=== PATIENT | male | born 1990 | race African-American/Black ===

== ENCOUNTER 2017-10-20 23:21 | Emergency (ER) | payer BC ==
[~2017-10-20] VITALS: Ht 190.5 cm; Wt 145.2 kg
[~2017-10-20 23:21] MED LIST: APAP/CODEINE ELI5 M1 OR; IBUPROFEN 600600 M1 PO; ZPAK PO
[2017-10-20 23:34] VITALS: BP 173/108
[2017-10-20] MEDS ORDERED: B/P MED PO (23:37)
[2017-10-20] MEDS ORDERED: FLAGYL500 MG PO (23:47)
== END 2017-10-21 00:50 | disposition home or self-care (01) ==
LOC: ER 23:21
DX: R36.9 Urethral discharge, unspecified (principal); F17.210 Nicotine dependence, cigarettes, uncomplicated; I10 Essential (primary) hypertension

== ENCOUNTER 2020-10-30 09:43 | Inpatient (IN) | payer BC, OTHER ==
[~2020-10-30] VITALS: Ht 188 cm; Wt 160.1 kg
[~2020-10-30 09:43] MED LIST changes: +B/P MED PO; +FLAGYL500 MG PO
[2020-10-30 09:44] VITALS: BP 204/144
[2020-10-30 10:51] LABS: ABSOLUTE NEUTROPHILS 5.9 thou/uL (1.4-8.2); BASOPHILS 0.5 % (0.0-2.0); EOSINOPHILS 0.9 % (0.0-3.0); HEMATOCRIT 45.9 % (42.0-52.0); HEMOGLOBIN 15.1 gm/dL (14.0-18.0); LYMPHOCYTES 22.5 % (24.0-44.0); MCH 27.8 pg (26.0-34.0); MCHC 32.9 g/dL (28.0-37.0); MCV 84.5 fL (80.0-100.0); MONOCYTES 5.4 % (1.0-8.0); PLATELET COUNT 254 thou/uL (150-400); POLYS 70.7 % (36.0-66.0); RBC 5.43 mil/uL (4.50-6.00); WBC 8.4 thou/uL (4.0-11.0)
[2020-10-30 11:01] LABS: CALCIUM 8.7 mg/dL (8.5-10.1); CREATININE 1.3 mg/dL (0.7-1.3); POTASSIUM 3.9 mmol/L (3.5-5.1)
[2020-10-30 11:11] LABS: ALBUMIN 3.7 g/dL (3.4-5.0); TOTAL BILIRUBIN 0.6 mg/dL (0.2-1.0); TOTAL PROTEIN 7.5 g/dL (6.4-8.2)
--- NOTE | 2020-10-30 15:01 | EKG ---
[address] [address] ELECTROCARDIOGRAM REPORT Name: TINO HANSON Room #: 170-7 ADM IN M.R.#: [id number] Admission: 10/30/20 Attend Phys: Janet Torrez MD Discharge: Date of : 88 Report #: [id number] [facility] ED Test Date: 2020-10-30 Test Time: 10:41:41 Pat Name: TINO HANSON Department: Room: 170 Gender: M Senior Information Security Consultant: PAULINA : 1990 Requested By: Renan Puga Order Number: [id number] MD: Serge Oliver Measurements Intervals [place] Rate: 100 P: 17 WA: 161 QRS: 23 QRSD: 99 T: -76 QT: 354 QTc: 457 Interpretive Statements Sinus tachycardia Left atrial enlargement Borderline repolarization abnormality No previous ECG available for comparison Electronically Signed On 10-30-2020 15:00:51 CDT by Serge Oliver [email or web address] <ELECTRONICALLY SIGNED> By: Serge Oliver MD, LOCATED WITHIN [facility] 10/30/20 1500 1041 1041 Serge Oliver MD, FACC /EPI
[2020-10-30 16:00] VITALS: BP 113/74
[2020-10-30 21:00] LABS: CHOLESTEROL 186 mg/dL (<200); HDL CHOLESTEROL 48 mg/dL (>40); LDL CHOLESTEROL 104 mg/dL (<100); TC:HDL 3.9 Ratio (Not establshd); TRIGLYCERIDE 173 mg/dL (<150); VLDL 35 mg/dL (<40)
[2020-10-30 21:01] LABS: SERUM ASSESSMENT Clear
[2020-10-31] VITALS (7 sets, daily range): BP systolic 138–148; BP diastolic 93–105
[2020-10-31 07:12] LABS: GLYCOHEMOGLOBIN (HGB A1C) 6.5 % (4.8-5.6)
[2020-10-31 09:36] LABS: CALCIUM 8.9 mg/dL (8.5-10.1); CREATININE 1.4 mg/dL (0.7-1.3); POTASSIUM 3.5 mmol/L (3.5-5.1)
[2020-10-31] MEDS ORDERED: ZESTRIL40 MG PO (13:18)
[2020-10-31] MEDS ORDERED: AMLODIPINE BESY10 MG PO (13:18)
--- NOTE | 2020-10-31 15:52 | 2DMMODE ---
[facility] [address] [place] [address] 2 D/M-MODE ECHOCARDIOGRAM Name: TINO HANSON Room #: 212-P ADM IN M.R.#: [id number] Admission: 10/30/20 Attend Phys: Janet Torrez MD Discharge: Date of : 88 Report #: [id number] THIS REPORT FOR: cc: [facility] - Clinic physician unknown [facility] - Clinic physician unknown Alex Esparza MD ~ APPROVED REPORT Study performed: 10/31/2020 14:48:23 EXAM: Comprehensive 2D, Doppler, and color-flow Echocardiogram Patient Location: Bedside Room #: 212 Status: routine BSA: 2.77 HR: 77 bpm BP: 147/105 mmHg Rhythm: NSR Other Information Study Quality: Adequate Indications Congestive Heart Failure Cardiomyopathy Hypertension/HDD 2D Dimensions RVDd: 46.35 mm IVSd: 7.94 (7-11mm) LVOT Diam: 26.18 (18-24mm) LVDd: 76.87 mm PWd: 10.99 (7-11mm) Ascending Ao: 33.27 (22-36mm) LVDs: 66.25 (25-40mm) Left Atrium: 54.37 (27-40mm) Aortic Root: 31.65 mm IVC: 17.00 mm Volumes Left Atrial Volume (Systole) Single Plane 4CH: 165.78 mL Single Plane 2CH: 107.67 mL LA ESV Index: 52.00 mL/m2 Aortic Valve AoV Peak Sean.: 1.06 m/s AO Peak Gr.: 4.52 mmHg LVOT Max P.33 mmHg [facility] [address] [place] [address] 2 D/M-MODE ECHOCARDIOGRAM Name: TINO HANSON JR Room #: 212-P [facility] IN .R.#: [id number] Admission: 10/30/20 Attend Phys: Denice Ontiveros Discharge: Date of : 88 Report #: [id number] LVOT Max V: 0.76 m/s JOSE JUAN Vmax: 3.86 cm2 Mitral Valve E/A Ratio: 3.3 MV Decel. Time: 128.73 ms MV E Max Sean.: 0.93 m/s MV A Sean.: 0.28 m/s MV PHT: 37.33 ms IVRT: 83.04 ms Pulmonary Valve PV Peak Sean.: 0.63 m/s PV Peak Gr.: 1.57 mmHg Pulmonary Vein P Vein S: 0.17 m/s P Vein A: 0.16 m/s P Vein D: 0.46 m/s P Vein A Dur.: 96.9 msec P Vein S/D Ratio: 0.37 Tricuspid Valve TR Peak Sean.: 2.02 m/s TR Peak Gr.: 16.26 mmHg PA Pressure: 21.00 mmHg Left Ventricle Left ventricle is dilated. There is severe global hypokinesis of the left ventricle. There is normal left ventricular wall thickness. Left ventricular ejection fraction is severely decreased. LVEF is 25-30%. Grade IV - fixed restrictive diastolic dysfunction. Right Ventricle Right ventricle is dilated. The right ventricular systolic function is normal. Atria Left atrium is dilated. Right atrium is dilated. Aortic Valve The aortic valve is normal in structure. No aortic regurgitation is present. There is no aortic valvular stenosis. Mitral Valve The mitral valve is normal in structure. Mild mitral regurgitation. No evidence of mitral valve stenosis. Tricuspid Valve [facility] [address] [place] [address] 2 D/M-MODE ECHOCARDIOGRAM Name: TINO HANSON JR Room #: 212-P [facility] IN M.R.#: [id number] Admission: 10/30/20 Attend Phys: Denice Ontiveros Discharge: Date of : 88 Report #: [id number] The tricuspid valve is normal in structure. There is trace tricuspid regurgitation. Estimated PAP 21 mmHg. There is no pulmonary hypertension. Pulmonic Valve The pulmonary valve is normal in structure. Trace pulmonic regurgitation. Great Vessels The aortic root is normal in size. IVC is normal in size and collapses >50% with inspiration Pericardium There is no pericardial effusion. <Conclusion> Left ventricle is dilated. There is severe global hypokinesis of the left ventricle. LVEF is 25-30%. Right ventricle is dilated. Left atrium is dilated. Right atrium is dilated. The aortic valve is normal in structure. The mitral valve is normal in structure. Mild mitral regurgitation. The tricuspid valve is normal in structure. There is trace tricuspid regurgitation. Estimated PAP 21 mmHg. There is no pulmonary hypertension. The pulmonary valve is normal in structure. Trace pulmonic regurgitation. The aortic root is normal in size. There is no pericardial effusion. <ELECTRONICALLY SIGNED> By: Alex Esparza MD 10/31/20 1552 [id number] 155 Alex Esparza MD /INF
[2020-11-01 04:45] VITALS: BP 128/84
[2020-11-01 07:50] VITALS: BP 123/80
[2020-11-01] MEDS ORDERED: LISINOPRIL20 MG PO (09:21)
[2020-11-01] MEDS ORDERED: CARVEDILOL12.5 MG PO (09:21)
[2020-11-01 11:35] VITALS: BP 116/83
[2020-11-01 16:10] VITALS: BP 116/78
[2020-11-01 19:58] VITALS: BP 116/78
[2020-11-04 16:35] VITALS: BP 116/78
== END 2020-11-01 20:30 | disposition home or self-care (01) | DRG 305 ==
LOC: ER 09:43 → EROBS 11:55 → 2N 11:55 → EROBS 19:45 → 2N 10-31 02:31
PROVIDERS: Emergency Medicine; ADMIT Hospitalist; ATTEND Hospitalist
DX: I16.1 Hypertensive emergency (principal); Z68.42 Body mass index [BMI] 45.0-49.9, adult; I50.9 Heart failure, unspecified; E66.01 Morbid (severe) obesity due to excess calories; Z20.822 Contact with and (suspected) exposure to COVID-19; I11.0 Hypertensive heart disease with heart failure
CPT/HCPCS: 10081

== ENCOUNTER → 2020-11-07 | Outpatient (CLI) | payer BC, OTHER ==
[~2020-11-07] MED LIST changes: +AMLODIPINE BESY10 MG PO; +CARVEDILOL12.5 MG PO; +LISINOPRIL20 MG PO; +ZESTRIL40 MG PO
== END ==
LOC: SJCVCIMAG 07:29
PROVIDERS: ATTEND Internal Medicine
DX: I25.5 Ischemic cardiomyopathy (principal); R06.00 Dyspnea, unspecified; I50.9 Heart failure, unspecified; I10 Essential (primary) hypertension; Z72.89 Other problems related to lifestyle